=== PATIENT | female | born 1980 | race Caucasian/White ===

== ENCOUNTER 2018-03-23 20:01 | Emergency (ER) | payer OTHER ==
--- OUTSIDE RECORDS SUMMARY | 2018-03-23 20:04 | XMS REPORT | Clinical Summary ---
:1980 Author Organization [facility] Address [address] [place] [address] Care Team Providers Name Role Phone Deon Latham MD Primary Care Provider Allergies Active Allergy Reactions Severity Noted Date Comments Azithromycin Hives 07/25/2017 Levofloxacin Other (See Comments) 07/25/2017 Chest pains Medications Medication Sig Dispensed Refills Start End Date Status Date multivitamin Take 1 tablet 0 Active (THERAGRAN) tablet by mouth daily. TURMERIC ROOT EXTRACT Take by mouth. 0 Active ORAL UNABLE TO FIND PREVENTA 0 Active MIGRAINE magnesium oxide Take 400 mg by 0 09/28/19 Discontinued (MAG-OX) 400 mg tablet mouth daily. 18 amitriptyline (ELAVIL) Take 1 tablet 30 tablet 3 09/28/19 Discontinued 10 MG (10 mg total) 8 18 tabletIndications: by mouth Tension headache, nightly. Migraine without aura and without status migrainosus, not intractable methylPREDNISolone follow package 21 tablet 0 02/06/20 (MEDROL, NURIA,) 4 mg directions 8 18 tablet tiZANidine (ZANAFLEX) 2 Take 1 tablet 60 tablet 2 03/02/20 MG tablet (2 mg total) 8 18 by mouth 2 (two) times a day as needed for muscle spasms for up to 30 days. Active Problems Problem Noted Date Migraine without aura and without status migrainosus, not intractable 2017 Tension headache 09/27/2017 Encounters Date Type Specialty Care Team Description 01/31/2018 Office Visit Neurology Dutch Arnett MD Cervical radiculopathy ( Primary Dx); Migraine without aura and without status migrainosus, not intractable; Tension headache 09/27/2017 Office Visit Neurology Dutch Arnett MD Migraine without aura and without status migrainosus, not intractable (Primary Dx); Tension headache 09/04/2017 Orders Only Neurology Mel Hensley, Tension headache; MA Migraine without aura and without status migrainosus, not intractable 08/22/2017 Orders Only Neurology Mel Hensley, Migraine without aura and without status migrainosus, not intractable; MA Chiari I malformation 07/25/2017 Office Visit Neurology Dutch Arnett MD Tension headache ( Primary Dx); Migraine without aura and without status migrainosus, not intractable; Chiari I malformation after 03/22/2017 Family History Medical History Relation Name Comments Hypertension Father Stroke Maternal Grandfather Stroke Maternal Grandmother Alzheimer's disease Paternal Grandmother Relation Name Status Comments Father Maternal Grandfather Maternal Grandmother Paternal Grandmother Social History Tobacco Use Types Packs/Day Years Used Date Never Smoker Smokeless Tobacco: Never Used Alcohol Use Drinks/Week oz/Week Comments Yes ocassionally Sex Assigned at Date Recorded Not on file Job Start Date Occupation Industry Not on file Not on file Not on file Travel History Travel Start Travel End No recent travel history available. Last Filed Vital Signs Vital Sign Reading Time Taken Blood Pressure 116/68 01/31/2018 8:57 AM CDT Pulse 76 01/31/2018 8:57 AM CDT Temperature - - Respiratory Rate - - Oxygen Saturation - - Inhaled Oxygen Concentration - - Weight 71.2 kg (157 lb) 01/31/2018 8:57 AM CDT Height 168.9 cm (5' 6.5") 01/31/2018 8:57 AM CDT Body Mass Index 24.96 01/31/2018 8:57 AM CDT Plan of Treatment Date Type Specialty Care Team Description 05/01/2018 [place] [id number] [id number] Health Maintenance Due Date Last Done Comments MMR VACCINES (1 of 1 - Standard 1981 series) VARICELLA VACCINES (1 of 2 - 2-dose 1993 adolescent series) CERVICAL CANCER SCREENING 2001 INFLUENZA VACCINE 11/27/2017 HEPATITIS B VACCINES Aged Out No longer eligible based on patient's age to complete this topic IPV VACCINES Aged Out No longer eligible based on patient's age to complete this topic MENINGOCOCCAL VACCINE Aged Out No longer eligible based on patient's age to complete this topic Results Not on fileafter 03/22/2017 Insurance Payer Benefit Plan / Group Subscriber ID Type Phone Address AETNA AETNA HMO,POS,EPO, MC/EC xxxxxxxxxx HMO ) [place] [address] Advance Directives Patient has advance care planning documents on file. For more information, please contact:[id number] [place] [address]
[2018-03-23] MEDS ORDERED: KETOROLAC 30 MG/ML INJ ONE (21:19)
[2018-03-23] MEDS ORDERED: PROMETHAZINE 25 MG/ML VIAL ONE (21:19)
[2018-03-23] MEDS ORDERED: AMOX/K CLAV 875 MG TAB ONE (21:19)
[2018-03-23 21:20] LABS: Urine Blood 2+ (NEG); Urine Glucose NEGATIVE (NEG); Urine Protein NEGATIVE (NEG)
[2018-03-23] MEDS ORDERED: PROMETHAZINE 25 MG TABLET ONE (21:23)
[2018-03-23 21:46] LABS: Urine Bacteria <20 /HPF (<20); Urine Culture Reflex Order NOT NEEDED; Urine RBC <5 /HPF (NONE SEEN)
--- NOTE | 2018-03-23 21:55 | EDPHYS ---
Physician Documentation [facility] Name: Lizzy Bills Age: 38 yrs Sex: Female : 1980 Arrival Date: 03/23/2018 Time: 20:05 Bed 8 Private MD: Deon Latham ED Physician Luke Ghosh HPI: 03/23 21:07 This 38 yrs old Female presents to ER via Ambulatory with complaints of snw Headache. 21:07 The patient complains of pain to the forehead, right eye, left eye, right episcopal and snw right base of the skull. The patient describes the headache as pounding. Onset: The symptoms/episode began/occurred gradually, 10 day(s) ago. Associated signs and symptoms: Pertinent positives: nausea, Pertinent negatives: altered mental status, fever, malaise, neck stiffness, rash, vision changes, weakness. Severity of symptoms: At its worst the pain was moderate. Headache History: Other migraines since the 3rd grade. The symptoms are alleviated by sleep. The patient has experienced similar episodes in the past. The patient has not recently seen a physician. pt states pressure to jaw and face is new. Pt states she has had multiple CT scans, never noted to have aneurysms, no family hx. I do not want to repeat CT as benefit does not outweigh risks. 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 - Social history:: Smoking status: Patient/guardian denies using tobacco. - Ebola Screening: : No symptoms or risks identified at this time. ROS: 21:04 Constitutional: Negative for fever, chills, and weight loss, Eyes: Negative for injury, snw redness, and discharge, Positive pain behind bilateral eyes ENT: Negative for injury and discharge, tenderness to jaw bilaterally Neck: Negative for injury, pain, and swelling, Cardiovascular: Negative for chest pain, palpitations, and edema, Respiratory: Negative for shortness of breath, cough, wheezing, and pleuritic chest pain, Abdomen/GI: Negative for abdominal pain, nausea, vomiting, diarrhea, and constipation, Back: Negative for injury and pain, : Negative for injury, bleeding, discharge, and swelling, MS/Extremity: Negative for injury and deformity, Skin: Negative for injury, rash, and discoloration, Psych: Negative for depression, anxiety, suicide ideation, homicidal ideation, and hallucinations. 21:04 Neuro: Positive for headache. Exam: 21:03 Constitutional: This is a well developed, well nourished patient who is awake, alert, snw and in no acute distress. Eyes: Pupils equal round and reactive to light, extra-ocular motions intact. Lids and lashes normal. Conjunctiva and sclera are non-icteric and not injected. Cornea within normal limits. Periorbital areas with no swelling, redness, or edema. ENT: Nares patent. No nasal discharge, no septal abnormalities noted. Tympanic membranes are normal and external auditory canals are clear. Oropharynx with no redness, swelling, or masses, exudates, or evidence of obstruction, uvula midline. Mucous membranes moist. Neck: Trachea midline, no thyromegaly or masses palpated, and no cervical lymphadenopathy. Supple, full range of motion without nuchal rigidity, or vertebral point tenderness. No Meningismus. Chest/axilla: Normal chest wall appearance and motion. Nontender with no deformity. No lesions are appreciated. Cardiovascular: Regular rate and rhythm with a normal S1 and S2. No gallops, murmurs, or rubs. Normal PMI, no JVD. No pulse deficits. Respiratory: Lungs have equal breath sounds bilaterally, clear to auscultation and percussion. No rales, rhonchi or wheezes noted. No increased work of breathing, no retractions or nasal flaring. Abdomen/GI: Soft, non-tender, with normal bowel sounds. No distension or tympany. No guarding or rebound. No evidence of tenderness throughout. Back: No spinal tenderness. No costovertebral tenderness. Full range of motion. Skin: Warm, dry with normal turgor. Normal color with no rashes, no lesions, and no evidence of cellulitis. MS/ Extremity: Pulses equal, no cyanosis. Neurovascular intact. Full, normal range of motion. Psych: Awake, alert, with orientation to person, place and time. Behavior, mood, and affect are within normal limits. 21:03 Neuro: Orientation: is normal, Mentation: is normal, Memory: is normal, Cranial nerves: grossly normal, Motor: is normal, Sensation: is normal, seizure activity, is not displayed by the patient, Abnormal movements: there are no abnormal movements. Vital Signs: 20:51 BP 122 / 69; Pulse 77; Resp 18; Temp 98(O); Pulse Ox 100% on R/A; Weight 70.76 kg; tl2 Height 5 ft. 6 in. (167.64 cm); Pain 5/10; 21:49 BP 123 / 81; Pulse 61; Resp 17; Pulse Ox 99% on R/A; Pain 4/10; rr5 20:51 Body Mass Index 25.18 (70.76 kg, 167.64 cm) tl2 Clay Coma Score: 21:56 Eye Response: spontaneous(4). Verbal Response: oriented(5). Motor Response: obeys snw commands(6). Total: 15. MDM: 20:52 Patient medically screened. snw 21:56 Data reviewed: vital signs, nurses notes. Data interpreted: Pulse oximetry: on room air snw is 99 %. Interpretation: normal. Counseling: I had a detailed discussion with the patient and/or guardian regarding: the historical points, exam findings, and any diagnostic results supporting the discharge/admit diagnosis, the need for outpatient follow up, to return to the emergency department if symptoms worsen or persist or if there are any questions or concerns that arise at home. Special discussion: Based on the history and exam findings, there is no indication for further emergent testing or inpatient evaluation. I discussed with the patient/guardian the need to see the neurologist for further evaluation of the symptoms. I discussed with the patient/guardian the need to see the primary care provider for further evaluation of the symptoms. 03/23 20:11 Order name: Urine Microscopic Only; Complete Time: 21:53 snw 03/23 21:14 Order name: Urine Dipstick--Ancillary (enter results); Complete Time: 21:22 mt 03/23 21:14 Order name: Urine --Ancillary (enter results); Complete Time: 21:22 mt 03/23 20:11 Order name: Urine Dipstick-Ancillary (obtain specimen); Complete Time: 20:48 snw Administered Medications: 21:27 Drug: TORadol 60 mg Route: IM; Site: right gluteus; tl2 22:05 Follow up: Response: No adverse reaction rr5 21:27 Drug: Phenergan 25 mg Route: PO; tl2 22:06 Follow up: Response: No adverse reaction rr5 21:27 Drug: Augmentin 875 mg Route: PO; tl2 22:06 Follow up: Response: No adverse reaction rr5 Disposition: 03/24 00:38 Co-signature as Attending Physician, Luke Ghosh MD. trevor Disposition: 03/23/18 21:55 Discharged to Home. Impression: Headache, Acute sinusitis. - Condition is Stable. - Discharge Instructions: General Headache Without Cause, Migraine Headache, Sinusitis, Adult, Rehydration, Adult. - Prescriptions for Augmentin 875- 125 mg Oral Tablet - take 1 tablet by ORAL route every 12 hours for 10 days; 20 tablet. Zyrtec 10 mg Oral Tablet - take 1 tablet by ORAL route once daily As needed; 20 tablet. orphenadrine citrate 100 mg Oral Tablet Sustained Release - take 1 tablet by ORAL route 2 times per day As needed; 20 tablet. - Work release form, Medication Reconciliation Form, Thank You Letter, Antibiotic Education, Prescription Opioid Use form. - Follow up: Deon Latham MD; When: 2 - 3 days; Reason: Recheck today's complaints, Continuance of care, Re-evaluation by your physician. Follow up: Emergency Department; When: As needed; Reason: Worsening of condition. Signatures: Dispatcher [employer] EDMS Luke Ghosh MD MD pkl Montse Sinclair, [employer] SMOKEHOUSE OPERATOR-Rebecca Soria RN RN tl2 Maged Tucker RN RN rr5 Corrections: (The following items were deleted from the chart) 03/23 22:08 21:55 03/23/2018 21:55 Discharged to Home. Impression: Headache; Acute sinusitis. rr5 Condition is Stable. Forms are Medication Reconciliation Form, Thank You Letter, Antibiotic Education, Prescription Opioid Use. Follow up: Deon Latham; When: 2 - 3 days; Reason: Recheck today's complaints, Continuance of care, Re-evaluation by your physician. Follow up: Emergency Department; When: As needed; Reason: Worsening of condition. snw
--- NOTE | 2018-03-23 21:55 | ER ---
Nurse's Notes [facility] Name: Lizzy Bills Age: 38 yrs Sex: Female : 1980 Arrival Date: 03/23/2018 Time: 20:05 Bed 8 Private MD: Deon Latham Diagnosis: Headache;Acute sinusitis Presentation: 03/23 20:48 Presenting complaint: Patient states: Headache since 03/12, started at the base of tl2 skull and is now behind her eyes. Pt reports history of migraines but this feels different and is lasting longer. Reports nausea. Transition of care: patient was not received from another setting of care. Onset of symptoms was March 12, 2018. Risk Assessment: Do you want to hurt yourself or someone else? Patient reports no desire to harm self or others. Initial Sepsis Screen: Does the patient meet any 2 criteria? No. Patient's initial sepsis screen is negative. Does the patient have a suspected source of infection? No. Patient's initial sepsis screen is negative. Care prior to arrival: None. 20:48 Method Of Arrival: Ambulatory tl2 20:48 Acuity: [place] 3 tl2 Triage Assessment: 20:51 Headache History: The patient has had previous headaches and this one is different than tl2 previous episodes. General: Appears in no apparent distress. uncomfortable, Behavior is calm, cooperative, appropriate for age. Pain: Complains of pain in forehead and right base of the skull Pain radiates to jaw Pain currently is 5 out of 10 on a pain scale. at worst was 10 out of 10 on a pain scale. Pain began 2 weeks ago Also complains of nausea. Neuro: Level of Consciousness is awake, alert, obeys commands, Oriented to person, place, time, situation. Respiratory: Airway is patent Respiratory effort is even, unlabored, Respiratory pattern is regular, symmetrical. GI: Reports nausea. Derm: Skin is pink, warm \T\ dry. 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 - Social history:: Smoking status: Patient/guardian denies using tobacco. - Ebola Screening: : No symptoms or risks identified at this time. Screenin:53 Abuse screen: Denies threats or abuse. Nutritional screening: No deficits noted. tl2 Tuberculosis screening: No symptoms or risk factors identified. Fall Risk None identified. Assessment: 21:20 General: Appears in no apparent distress. distressed, Behavior is calm, cooperative, rr5 appropriate for age. Pain: Complains of pain in both eyes , face, forehead Pain currently is 5 out of 10 on a pain scale. Quality of pain is described as aching, Pain began gradually, Is intermittent. Neuro: Level of Consciousness is awake, alert, obeys commands, Oriented to person, place, time, situation, Reports headache in right in left. Cardiovascular: Capillary refill < 3 seconds Patient's skin is warm and dry. Respiratory: Airway is patent Respiratory effort is even, unlabored, Respiratory pattern is regular, symmetrical. GI: No signs and/or symptoms were reported involving the gastrointestinal system. : No signs and/or symptoms were reported regarding the genitourinary system. EENT: No signs and/or symptoms were reported regarding the EENT system. Derm: No signs and/or symptoms reported regarding the dermatologic system. Musculoskeletal: Capillary refill < 3 seconds, Range of motion: intact in all extremities. 21:52 Reassessment: Patient appears in no apparent distress at this time. Patient states rr5 feeling better. Patient states symptoms have improved. 22:06 Reassessment: explained the discharged instruction. no complaints made.vitally stable. rr5 Vital Signs: 20:51 BP 122 / 69; Pulse 77; Resp 18; Temp 98(O); Pulse Ox 100% on R/A; Weight 70.76 kg; tl2 Height 5 ft. 6 in. (167.64 cm); Pain 5/10; 21:49 BP 123 / 81; Pulse 61; Resp 17; Pulse Ox 99% on R/A; Pain 4/10; rr5 20:51 Body Mass Index 25.18 (70.76 kg, 167.64 cm) tl2 Sean Coma Score: 21:56 Eye Response: spontaneous(4). Verbal Response: oriented(5). Motor Response: obeys snw commands(6). Total: 15. ED Course: 20:05 Patient arrived in ED. ds1 20:05 Deon Latham MD is Private Physician. ds1 20:37 Montse Sinclair F[facility]-C [facility] snw 20:37 Luke Ghosh MD is Attending Physician. snw 20:50 Triage completed. tl2 20:51 Arm band placed on right wrist. tl2 20:52 Maged Tucker, RN is Primary Nurse. rr5 20:53 Patient has correct armband on for positive identification. Bed in low position. Call tl2 light in reach. Side rails up X 1. 21:53 Deon Latham MD is Referral Physician. snw 22:07 No provider procedures requiring assistance completed. Patient did not have IV access rr5 during this emergency room visit. Administered Medications: 21:27 Drug: TORadol 60 mg Route: IM; Site: right gluteus; tl2 22:05 Follow up: Response: No adverse reaction rr5 21:27 Drug: Phenergan 25 mg Route: PO; tl2 22:06 Follow up: Response: No adverse reaction rr5 21:27 Drug: Augmentin 875 mg Route: PO; tl2 22:06 Follow up: Response: No adverse reaction rr5 Outcome: 21:55 Discharge ordered by . snw 22:07 Discharged to home ambulatory. rr5 22:07 Condition: stable 22:07 Discharge instructions given to patient, Instructed on discharge instructions, follow up and referral plans. medication usage, Demonstrated understanding of instructions, follow-up care, medications, Prescriptions given X 3. 22:08 Patient left the ED. rr5 Signatures: Montse Sinclair FNP-C DIRECTOR TITLE-[facility] Karina Botello ds1 Rebecca Rodriguez RN RN tl2 Maged Tucker, ELIANE RN rr5
[2018-03-23 23:23] VITALS: TEMP 98
[2018-03-23 23:24] VITALS: BP 123/81; O2SAT 99
== END 2018-03-23 22:08 | disposition home or self-care (01) ==
LOC: ER 20:01
DX: J01.90 Acute sinusitis, unspecified (principal); R51 Headache; K21.9 Gastro-esophageal reflux disease without esophagitis; Z79.899 Other long term (current) drug therapy
CPT/HCPCS: 81003; 81015; 81025; 96372; 99283; J2550

== ENCOUNTER 2019-11-07 13:09 | Emergency (ER) | payer OTHER ==
--- OUTSIDE RECORDS SUMMARY | 2019-11-07 13:11 | XMS REPORT | Clinical Summary ---
:1980 Author Organization [facility] Address [address] [place] [id number] Care Team Providers Name Role Phone Deon Latham MD Primary Care Provider Allergies Active Allergy Reactions Severity Noted Date Comments Azithromycin Hives 07/25/2017 Levofloxacin Other (See Comments) 07/25/2017 Chest p ains Medications Medication Sig Dispensed Refills Start Date End Date Status multivitamin Take 1 tablet by 0 Active (THERAGRAN) tablet mouth daily. TURMERIC ROOT EXTRACT Take by mouth. 0 Active ORAL UNABLE TO FIND PREVENTA 0 Activ e MIGRAINE diclofenac (CATAFLAM) Take 1 tab at 90 tablet 0 05/01/2018 Active 50 MG tablet the onset of a severe headache, may repeat x1 in 2hour. Max 2 tabs in a day SUMAtriptan (IMITREX) Take 1 tab at 9 tablet 3 05/01/2018 Active 25 MG tablet onset. May repeat in 2 hours and not to exceed. Max 200mg /24 hours amitriptyline Take 1 tablet 30 tablet 3 05/01/2018 05/01/2019 (ELAVIL) 10 MG tablet (10 mg total) by mouth nightly. Active Problems Problem Noted Date Migraine without aura and without status migrainosus, not intractable 09/27/2017 Tension headache 09/27/2017 Family History Medical History Relation Name Comments [...] travel history available. 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
--- OUTSIDE RECORDS SUMMARY | 2019-11-07 13:11 | XMS REPORT | Continuity of Care Document ---
:1980 Author Organization [facility] t Address [address] [place] [address] Care Team Providers Name Role Phone Boogie Latham MD Primary Care Physician DR MARCELLE HEADLEY Attending Clinician Unavailable DR MARCELLE HEADLEY Admitting Clinician Unavailable Problems Condition Condition Condition Status Onset Resolution Last Treating Co mments Source Name Details Category Date Date Treatment Clinician Date Migraine Migraine Disease Active [place] without without 09-27 [facility] aura and aura and 00:00: st without without 00 status status migrainosu migrainosu s, not s, not intractabl intractabl e e Tension Tension Disease Active [facility] headache headache 09-27 Method i 00:00: st 00 GERD GERD Diagnosis [facility] Chronic Problem [facility] rhinitis rhinitis for EN T Nasal Nasal Diagnosis Active [facility] airway airway for ENT obstructio obstructio n n Headache Headache Diagnosis Active [facility] Deviated Deviated Diagnosis Active [facility] nasal nasal for ENT septum septum Hypertroph Hypertroph Diagnosis Active Center y of nasal y of nasal fo r ENT turbinates turbinates Cough Cough Diagnosis [facility] Dysphagia Dysphagia Diagnosis Active [facility] Edema of Edema of Diagnosis Active [facility] larynx larynx for ENT Allergies, Adverse Reactions, Alerts Allergy Allergy Status Severity Reaction(s) Onset Inactive Treating Comm ents Source Name Type Date Date Clinician Azithrom Propensi Active Hives [place] ycin ty to 07-25 [facility] adverse 00:00: st reaction 00 s to drug Levoflox Propensi Active Other (See Chest [place] acin ty to Comments) 07-25 pains [facility] adverse 00:00: st reaction 00 s to drug Levaquin Adverse Active Info Not Cente r Reaction Available for E NT Azithrom Adverse Active Info Not Cente r ycin Reaction Available for E NT Family History Family Member Diagnosis Comments Start Date Stop Date Source Natural father Hypertension [facility] Maternal Stroke [facility] grandfather Gnosticism Maternal Stroke [facility] grandmother Gnosticism Paternal Alzheimer's disease [place] grandmother Gnosticism Social History Social Habit Start Date Stop Date Quantity Comments Source Sex Assigned At [facility] Gnosticism Alcohol intake 2018-05-01 2018-05-01 Current drinker of Rolando lambert 00:00:00 00:00:00 alcohol (finding) [facility] st Alcohol Comment 2017-07-25 2017-07-25 ocassionally [facility] 00:00:00 00:00:00 Gnosticism Smoking Status Start Date Stop Date Source Never smoker [facility] Methodkatie t Medications Ordered Filled Start Stop Current Ordering Indication Dosage Frequency Signature Comments Components Source Medication Medication Date Date Medication? Clinician (SIG) Name Name diclofenac Yes Take 1 tab [place] (CATAFLAM) 1-03 at the [facility] 50 MG 00:00: onset of a st tablet 00 severe headache, may repeat x1 in 2hour. Max 2 tabs in a day SUMAtriptan Yes Take 1 tab [facility] (IMITREX) 1-03 at onset. Metho di 25 MG 00:00: May repeat st tablet 00 in 2 hours and not to exceed. Max 200mg /24 hours amitriptyli 2020- No 10mg QD Take 1 Bentley migueln ne (ELAVIL) 1-03 05-01 tablet (10 M ethodi 10 MG 00:00: 23:59 mg total) st tablet 00 :00 by mouth nightly. UNABLE TO Yes PREVENTA [place] FIND 6-01 MIGRAINE [facility] 10:17: st 35 multivitami Yes 1{tbl} QD Take 1 [place] 3-29 tablet by [facility] (THERAGRAN) 08:17: mouth st tablet 46 daily. TURMERIC Yes Take by Rigoberto n ROOT 3-29 mouth. [facility] EXTRACT 08:17: st ORAL 46 Probiotic Probiotic Yes [facility] defined for E[facility] Multivitami Multivitami Yes [facility] n [facility]ella defined for ENT Other Other Yes [facility] defined for ENT Turmeric Turmeric Yes [facility] defined for ENT Topamax Topamax Yes [facility] defined for ENT Procedures This patient has no known procedures. Plan of Care Planned Activity Planned Date Details Comments Source Future Scheduled 2019-11-28 INFLUENZA VACCINE [place] [facility] Test 00:00:00 [code = INFLUENZA VACCINE] Future Scheduled 2001 Screening for [facility] Test 00:00:00 malignant neoplasm of cervix (procedure) [code = 726820390] Encounters Start End Encounter Admission Attending Care Care Encounter Source Date/Time Date/Time Type Type Clinicians Facility Department ID 2019-06-01 Inpatient [id number] [place] 08:00:00 [facility] 2018-05-30 2018-05-30 Outpatient [facility] [id number] Center 10:40:00 10:40:00 [facility] 2018-05-13 2018-05-13 Outpatient [facility] [id number] Center 14:58:00 14:58:00 [facility] 2018-04-18 2018-04-18 Outpatient [facility] [id number] Center 10:00:00 10:00:00 [facility] Results This patient has no known results.
--- NOTE | 2019-11-07 13:58 | RAD REPORT ---
EXAM DESCRIPTION: RAD - Wrist Left 3 View - 11/07/2019 1:44 pm CLINICAL HISTORY: Deformity;Pain COMPARISON: No comparisons FINDINGS: Transverse fracture of the distal radius is present with ventral dislocation and impaction along the ventral margin of the fracture. Angulation deformity is present. The distal radius fractur e fragment is comminuted. There is at least 1 additional fracture plane seen that extends to the beena cular surface. Ulna styloid appears to be intact. Carpal bones are normally positioned to the disloca berto distal radius fracture fragment. Soft tissue swelling without foreign body. IMPRESSION: Comminuted distal left radius fracture dislocation.
[2019-11-07] MEDS ORDERED: ONDANSETRON 4 MG/2 ML VIAL ONE (14:07)
[2019-11-07] MEDS ORDERED: FENTANYL CITR 100 MCG/2 ML ONE (14:07)
[2019-11-07] MEDS ORDERED: KETAMINE HCL 500 MG/5 ML VIAL ONE (14:58)
[2019-11-07] MEDS ORDERED: propofoL 200 MG/20 ML VIAL IV ONE (14:59)
[2019-11-07] MEDS ORDERED: NA CHLORIDE 0.9% 1,000 ML ONE (15:30)
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
--- NOTE | 2019-11-07 16:53 | RAD REPORT ---
EXAM DESCRIPTION: RAD - Wrist Left 2 View - 11/07/2019 4:00 pm CLINICAL HISTORY: post reduction COMPARISON: No comparisonsWrist Left 3 View dated 11/07/2019 FINDINGS: Fracture dislocation has been reduced to near anatomic alignment and position. The remains approximately 15 degrees ventral angulation. Ulna styloid is fractured. Cast material is in place limiting detail. Lucency is present in the scaphoid bone. Nondisplaced fracture is not excluded. The fracture is prese nt, this would not likely require separate treatment from that use on the radius.
[2019-11-07 17:51] VITALS: O2SAT 100
[2019-11-07 17:58] VITALS: BP 110/68; TEMP 98
== END 2019-11-07 17:38 | disposition home or self-care (01) ==
LOC: ER 13:09
PROC: 2W3DX1Z Immobilization of Left Lower Arm using Splint (ICD-10-PCS; principal; 2019-11-07)
DX: S52.542A Smith's fracture of left radius, initial encounter for closed fracture (principal); S62.015A Nondisplaced fracture of distal pole of navicular [scaphoid] bone of left wrist, initial encounter for closed fracture; W19.XXXA Unspecified fall, initial encounter; Y93.9 Activity, unspecified; Y92.89 Other specified places as the place of occurrence of the external cause; Z88.1 Allergy status to other antibiotic agents
CPT/HCPCS: 96361; 73110; 73100; 96375; 96374; 99284; 29125; J2704; J3010; J7030; J2405

== ENCOUNTER 2020-08-23 10:59 | Emergency (ER) | payer OTHER ==
--- OUTSIDE RECORDS SUMMARY | 2020-08-23 11:04 | XMS REPORT | Continuity of Care Document ---
:1980 Author Organization [facility] t Address [address] [place] [address] Care Team Providers Name Role Phone Boogie Latham MD Primary Care Physician DR MARCELLE HEADLEY Attending Clinician Unavailable Shell DAMIAN, P. Attending Clinician Angelique Burgos RN Attending Clinician Unavailable Jad DAMIAN Attending Clinician Harley Caban APRN Attending Clinician Doctor Unassigned, Name Attending Clinician Unavailable Fransico Quijano Attending Clinician DR MARCELLE HEADLEY Admitting Clinician Unavailable SHELL Admitting Clinician Unavailable Payers Payer Name Policy Type Policy Effective Date Expiration Date [facility] ce Number AETNAAETNA [id number] [facility] Catholic [id number] /04/2017-Present MO Problems Condition Condition Condition Status Onset Resolution Last Treating Co mments Source Name Details Category Date Date Treatment Clinician Date Deviated Deviated Disease Active 2019-04 [place] nasal nasal 2-04 [facility] septum septum 00:00: st 00 Hypertroph Hypertroph Disease Active 2019-04 [place] y of nasal y of nasal 2-04 Me thodi turbinates turbinates 00:00: st 00 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 2-04 Meth kyra sinusitis sinusitis 00:00: st 00 Chronic Chronic Disease Active 2019-04 [place] frontal frontal 2-04 Method[facility] sinusitis sinusitis 00:00: st 00 Chronic Chronic Disease Active 2019-04 [place] sphenoidal sphenoidal 2-04 Me thodi sinusitis sinusitis 00:00: st 00 Migraine Migraine Disease Active [place] without without 09-27 [facility] aura and aura and 00:00: st without without 00 status status migrainosu migrainosu s, not s, not intractabl intractabl e e Tension Tension Disease Active [place] headache headache 09-27 Method i 00:00: st [...] Date Stop Date Source Natural father Hypertension Jeannette Catholic Maternal Stroke Jeannette grandfather Catholic Maternal Stroke Jeannette grandmother Catholic Paternal Alzheimer's disease [place] grandmother Catholic Social History Social Habit Start Date Stop Date Quantity Comments Source Tobacco use and 2020-04-18 2020-04-18 Never used [place]annette exposure 00:00:00 00:00:00 Catholic Alcohol intake 2020-04-18 2020-04-18 Ex-drinker [place]annette 00:00:00 00:00:00 (finding) Catholic Alcohol Comment 2017-07-25 2017-07-25 ocassionally Jeannette 00:00:00 00:00:00 Catholic Sex [birth year] At [birth year] [place] 00:00:00 00:00:00 Catholic Smoking Status Start Date Stop Date Source Never smoker Pro Methodis t Medications Ordered Filled Start Stop Current Ordering Indication Dosage Frequency Signature Comments Components Source Medication Medication Date Date Medication? Clinician (SIG) Name Name multivitami 2019-04 Yes 1{tbl} QD Take 1 Rolando lambert n 2-06 tablet by Methodi (THERAGRAN) 03:03: mouth st tablet 20 daily. topiramate 2019-04 Yes 50mg QD Take 50 mg [place] (TOPAMAX) 2-06 by mouth Method i 25 MG 03:03: daily. st tablet 20 HYDROcodone 2019-04 2020- No acute pain 1{tbl} Q6H Take 1 Mast -acetaminop 2-04 12-11 tablet by Me jose martinez 00:00: 23:[address] (Vicodin) 00 :00 every 6 5-300 mg (six) per tablet hours as needed for moderate pain for up to 7 days .acute pain. Max Daily Amount: 4 tablets UNABLE TO 2019-04- No PREVENTA Bentley ston FIND 05-23 MIGRAINE Methodi 17:44: 00:00 st 31 :00 TURMERIC 2019-04- No Take by Lilliam on ROOT 05-23 mouth. [facility] EXTRACT 17:44: 00:00 st ORAL 27 :00 diclofenac Yes Take 1 tab [place] [...] not to exceed. Max 200mg /24 hours Probiotic Probiotic Yes [facility] defined for ENT Multivitami Multivitami Yes [facility] n Angella defined for ENT Other Other Yes [facility] Angella defined for ENT Turmeric Turmeric Yes [facility] Angella defined for ENT Topamax Topamax Yes [facility] Angella defined for ENT Vital Signs Vital Name Observation Time Observation Value Comments Source Systolic blood 2020-04-18 14:43:00 103 mm[Hg] [place] Catholic pressure Diastolic blood 2020-04-18 14:43:00 63 mm[Hg] [place] Catholic pressure Heart rate 2020-04-18 14:43:00 65 /min Pro [facility] Respiratory rate 2020-04-18 14:43:00 16 /min Kiki Franklin Oxygen saturation in 2020-04-18 14:43:00 99 /min Pro [facility] Arterial blood by Pulse oximetry Body temperature 2020-04-01 13:25:00 36.78 Kaitlyn Kiki Franklin Body height 2020-04-01 06:57:00 167.6 cm Pro Franklin Body weight 2020-04-01 06:57:00 72.576 kg Pro Franklin BMI 2020-04-01 06:57:00 25.82 kg/m2 Pro [facility] Procedures Procedure Date / Time Performed Performing Clinician [facility] e THYROID BIOPSY FNA 2020-04-18 15:51:27 Ciera Goff CYTOLOGY 2020-04-18 13:46:00 Ciera Goffodi (NON-GYNECOLOGICAL) REQUEST ND AN ELECTIVE 2020-04-01 07:56:47 Yu Keene ENDOTRACHEAL AIRWAY SEPTOPLASTY, NASAL 2020-04-01 07:30:00 Ciera Goff POC , URINE 2020-04-01 07:00:00 Jad Xochilt Pro [facility] COVID-19 QUALITATIVE PCR 2020-03-30 09:06:00 Ciera Goff HEMOGLOBIN A1C 2020-03-23 17:48:00 Lavonne Caban HCG QUALITATIVE, SERUM 2020-03-23 17:48:00 Lavonne Caban SCREEN HC COMPLETE BLD COUNT 2020-03-23 17:48:00 Lavonne Caban W/AUTO DIFF COMPREHENSIVE METABOLIC 2020-03-23 17:48:00 Lavonne Caban PANEL ESTIMATED GFR 2020-03-23 17:48:00 Lavonne Caban ethodist US THYROID 2020-02-25 16:24:39 Ciera Goff Nd thodist Plan of Care Planned Activity Planned Date Details Comments Source Future Scheduled 2023-04-18 Screening for [facility] thodist Test 00:00:00 malignant neoplasm of cervix (procedure) [code = 647782654] Future Scheduled 2020-11-27 INFLUENZA VACCINE Rigoberto n Catholic Test 00:00:00 [code = INFLUENZA VACCINE] Future Scheduled 1998 Hepatitis C Pro Met hodist Test 00:00:00 screening (procedure) [code = 211881067] Future Scheduled 1996 COVID-19 VACCINE (1) Bentley bernabe Catholic Test 00:00:00 [code = COVID-19 VACCINE (1)] Encounters Start End Encounter Admission Attending Care Care Encounter Source Date/Time Date/Time Type Type Clinicians Facility Department ID 2019-06-01 Inpatient C RUMA HEADLEY [facility] [id number] [place] 08:00:00 [facility] 2020-04-18 2020-04-18 Outpatient [facility] [id number] [place] 00:00:00 00:00:00 CIERA 267 Method i 2020-04-01 2020-04-01 Outpatient [facility] 255 [id number] [place] 00:00:00 00:00:00 CIERA 115 Method i 2020-03-30 2020-03-30 Outpatient [facility] [id number] [place] 00:00:00 00:00:00 CIERA 470 Method i 2020-03-23 2020-03-23 Outpatient [facility] [id number] [place] 00:00:00 00:00:00 CIERA 805 Method i 2020-03-14 2020-03-14 Orders Doctor CUADRA [id number] 00:00:00 00:00:00 Only UnassignedDANNIELLE [id number] [facility] [id number] 2020-02-25 2020-02-25 Outpatient [facility] [id number] [place] 00:00:00 00:00:00 CIERA 403 Method i 2020-01-12 2020-01-12 Orders Doctor KHALIF [id number] 00:00:00 00:00:00 Only Unassigned, DANNIELLE [id number] [facility] [id number] 2019-12-31 2019-12-31 [facility] [id number] 00:00:00 00:00:00 Secure Msg [facility] [id number] Surgical [id number] Specialti [id number] es [address] [place] 2019-12-28 2019-12-28 [facility] [id number] 15:15:59 23:59:00 Encounter [facility] [id number] Surgical [id number] Specialti [id number] es 809 [place] 2019-12-28 2019-12-28 [facility] [id number] 15:02:06 15:37:28 Visit [facility] [id number] Surgical [id number] Specialti [id number] es 198 [place] 2018-05-30 2018-05-30 Outpatient [facility] [id number] [place] 10:40:00 10:40:00 [facility] for EN T for ENT [facility] 2018-05-13 2018-05-13 Outpatient [facility] [id number] [place] 14:58:00 14:58:00 Center for [facility] for EN T for ENT [facility] 2018-04-18 2018-04-18 Outpatient [facility] [id number] Center 10:00:00 10:00:00 Center for [facility] for EN T for ENT [facility] Results Test Description Test Time Test Comments Results Result Comments Source Cytology (non-gynecological) request 2020-04-19 16:33:25 Test Item Value Reference Range Interpretation Comme nts Case number (test code = [id number]) [id number] Cytology (non-gynecological) report (test See link below for PDF La b Report code = 1178) Result status (test code = 2736539) This is Final Report for [id number] [facility] [id number] 17:08:06 Interface, Radiology Results 04/18/2020 5:11 PM CSTFormatting of this note might be di fferent from the original.PROCEDURE: US THYROID BIOPSY FNAHISTORY: E04.1 Nontoxic single thyroid nodule, E04.2 Nontoxic multinodular goiter, E04.02TECHNIQUE: Risks, benefits, and alternatives discussed. Written and verbal informed consent obtained from the patient.A site for needle entry was selected and the skin was prepped and draped in the usual sterile fashion. After local administration of 1% buffered lidocaine, serial 25-gauge fine-needle aspirations were obtained using ultrasound guidance. The specimens were reviewed with pathology and were deemed adequate. They have been instructed to follow-up with Dr. CIERA GOFF for the results of the biopsy.Estimated Blood Loss: None.Complications: None.FINDINGS:*No significant change since the most recent imaging: approximately 5 cm right mid/inferior mixed solid/cystic thyroid nodule. *Central and inferior solid portions of the lesion were sampled.*Post- procedure images show no evidence of complication.IMPRESSION:1.Successful ultrasound-guided biopsy of 5 cm mixed solid/cystic right inferior thyroid nodule.[id number] 07:56:47Yu Keene CRNA 04/01/2020 7:58 AMAirway Date/Time: 04/01/2020 7:43 AMPerformed by: Yu Keene CRNAAuthorized by: Xochilt Street MD Location: ORUrgency: ElectiveDifficult Airway: No Anesthesiologist: Xochilt Street MDResident/VEST BACKER/AA: Yu Keene CRNAPerformed by: resident/VEST BACKER/AAPreoxygenated with 100% O2: Yes Mask Ventilation: Easy maskFinal Airway Type: Endotracheal airwayFinal Endotracheal Airway: ETT and reinforced tubeCuffed: Yes Technique Used: Direct laryngoscopyDevices/Methods Used in Placement: Intubating styletInsertion Site: OralBlade Type: MillerLaryngoscope Blade/Videolaryngoscope Blade Size: 2ETT Size (mm): 6.0Cuff at minimumocclusion pressure: Yes Measured from: TeethETT to Teeth (cm): 19Placement Verified by: CO2 detection, direct visualization and equal breath sounds Laryngoscopic view: Grade I - full view of glottisRapid Sequence Induction (RSI): No Number of Attempts at Approach: 1 Atraumatic intubation. No change to eyes, lips, teeth or oral mucosa.[facility] , [id number] 07:00:00 Test Item Value Reference Range Interpretation Comments test urine, POC (test Negative code = [id number]) Internal QC (test code = 257) QC acceptable Pro Franklin
[2020-08-23 13:16] LABS: Absolute Lymphocytes (CBC) 1.4 K/uL (0.7-4.9); Basophils % 0.3 % (0-1.3); Hematocrit 38.6 % (36.0-45.0); Lymphocytes % 12.7 % (15.3-44.8); MPV 8.2 fL (7.6-11.3); RBC Red Blood Cell Count 4.29 M/uL (3.86-4.86)
[2020-08-23 13:18] LABS: Protime INR 1.14
--- NOTE | 2020-08-23 13:24 | RAD REPORT ---
EXAM DESCRIPTION: US - Abdomen Exam Limited - 08/23/2020 1:07 pm CLINICAL HISTORY: Abdominal pain. COMPARISON: 2019 FINDINGS: The gallbladder wall is not thickened. A gallstone is not seen. The biliary tree is normal caliber. IMPRESSION: Unremarkable gallbladder ultrasound.
[2020-08-23] MEDS ORDERED: NA CHLORIDE 0.9% 1,000 ML ONE (13:25)
[2020-08-23 13:31] LABS: ALT/SGPT 18 U/L (12-78); AST/SGOT 12 U/L (15-37); Albumin 4.2 g/dL (3.4-5.0); Alkaline Phosphatase 69 U/L (45-117); BUN Blood Urea Nitrogen 11 mg/dL (7-18); Bicarbonate 26 mmol/L (21-32); Bilirubin Direct 0.1 mg/dL (0-0.2); Bilirubin Total 0.5 mg/dL (0.2-1.0); Glucose Level 92 mg/dL (74-106); Magnesium 2.1 mg/dL (1.8-2.4); NT PRO-BNP 69 pg/mL (<125); Potassium 4.3 mmol/L (3.5-5.1); Protein, Total 7.6 g/dL (6.4-8.2); Sodium Level 140 mmol/L (136-145); Troponin (Emerg Dept Use Only) < 0.02 ng/mL (0.0-0.045)
--- NOTE | 2020-08-23 14:06 | RAD REPORT ---
EXAM DESCRIPTION: RAD - Chest Single View - 08/23/2020 1:56 pm CLINICAL HISTORY: syncope COMPARISON: Two view chest May 2016 TECHNIQUE: AP portable chest image was obtained 08/23/2020 1:56 pm . FINDINGS: Lungs are clear. Heart and vasculature are normal. No measurable pleural effusion and no p neumothorax. No acute bony abnormality seen. No acute aortic findings suspected. IMPRESSION: No acute cardiopulmonary process. No significant change from comparison study.
--- NOTE | 2020-08-23 14:10 | RAD REPORT ---
EXAM DESCRIPTION: CT - Chest For Pe Angio - 08/23/2020 2:01 pm CLINICAL HISTORY: syncope, elevated d-dimer COMPARISON: No comparisons TECHNIQUE: Dynamically enhanced 3 mm thick images of the chest were obtained during administration o f approximately 150mL Isovue 370 IV contrast. Coronal and oblique MIP reconstruction images were gene rated and reviewed. Exam utilizes a protocol to evaluate the pulmonary arterial tree. All CT scans are performed using dose optimization technique as appropriate and may include automated exposure control or mA/KV adjustment according to patient size. FINDINGS: Exam was performed in conjunction with the contrast abdomen and pelvis study. Pulmonary ar trevor contrast density is not optimal but is sufficient to exclude any significant disease. No pulmona ry emboli are identified. The aorta as imaged shows no acute or suspicious finding. No pericardial thickening or effusion. No infiltrate or mass in the lung parenchyma. No pleural effusion or pleural thickening. No mediastinal or hilar suspicious masses. No chest wall masses or abnormal axillary lymphadenopathy. IMPRESSION: No pulmonary emboli identified. No other significant or suspicious findings.
--- NOTE | 2020-08-23 14:12 | RAD REPORT ---
EXAM DESCRIPTION: CT - Head Brain Wo Cont - 08/23/2020 1:58 pm CLINICAL HISTORY: Syncope COMPARISON: 2016 TECHNIQUE: Computed axial tomography of the head was obtained. IV contrast was not requested. All CT scans are performed using dose optimization technique as appropriate and may include automated exposure control or mA/KV adjustment according to patient size. FINDINGS: An intracranial bleed is not seen . The ventricles are normal in caliber. No extra-axial fluid collection is noted. Mild cerebellar tonsillar ectopia. . Fluid within the sinuses/ mastoids is not seen. IMPRESSION: No acute intracranial abnormality is seen. If patient's symptoms persist MRI of the bra in would be recommended.
--- NOTE | 2020-08-23 14:19 | RAD REPORT ---
EXAM DESCRIPTION: CT - Abdomen Pelvis W Contrast - 08/23/2020 2:01 pm CLINICAL HISTORY: Abdominal pain COMPARISON: Due to technical issues prior CT could not be reviewed. TECHNIQUE: Computed axial tomography of the abdomen pelvis was obtained. 100 cc Isovue-300 was admin istered intravenously. Oral contrast was not requested which limits evaluation of bowel All CT scans are performed using dose optimization technique as appropriate and may include automated exposure control or mA/KV adjustment according to patient size. FINDINGS: The liver, spleen, pancreas, adrenal and kidneys appear unremarkable. There is no evidence of diverticulitis. 2.9 centimeter left ovarian cyst. 2.4 centimeter right ovarian cyst. Retroverted uterus. No significa nt free fluid. Normal appendix Diastases of the rectus abdominis muscle 4.5 centimeters. Laxity of anterior abdominal wall. A loop o f small bowel abuts the linea alba. There is a tiny defect within anterior abdominal wall this level in the periumbilical region. IMPRESSION: Bilateral ovarian cyst without significant free-fluid
--- NOTE | 2020-08-23 14:52 | ER ---
Nurse's Notes [facility] Name: Lizzy Bills Age: 40 yrs Sex: Female : 1980 Arrival Date: 08/23/2020 Time: 11:00 Bed 20 Private MD: Diagnosis: Syncope and collapse;Other abdominal pain Presentation: 08/23 12:19 Chief complaint: Patient states: developed epigastric pain then felt weak and became em white/pale, another teacher from school checked her glucose and was 114, pt reports feeling nausea afterward, also reports has been watching her gallbladder, pt currently reports right upper quad. pain. Coronavirus screen: Client denies travel out of the [place] in the last 14 days. Ebola Screen: Patient negative for fever greater than or equal to 101.5 degrees Fahrenheit, and additional compatible Ebola Virus Disease symptoms Patient denies exposure to infectious person. Patient denies travel to an Ebola-affected area in the 21 days before illness onset. No symptoms or risks identified at this time. Initial Sepsis Screen: Does the patient meet any 2 criteria? No. Patient's initial sepsis screen is negative. Does the patient have a suspected source of infection? No. Patient's initial sepsis screen is negative. Risk Assessment: Do you want to hurt yourself or someone else? Patient reports no desire to harm self or others. Onset of symptoms was August 23, 2020. 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 - Social history:: Smoking status: Patient denies any tobacco usage or history of. Smoking status: Patient denies any tobacco usage or history of. Patient/guardian denies using alcohol, street drugs. Screenin:36 Abuse screen: Denies threats or abuse. Denies injuries from another. Nutritional ld1 screening: No deficits noted. Tuberculosis screening: No symptoms or risk factors identified. Fall Risk None identified. Assessment: 12:34 General: Appears in no apparent distress. comfortable, Behavior is calm, cooperative, ld1 appropriate for age. Pain: Complains of pain in epigastric area Pain radiates to right upper quadrant Pain currently is 8 out of 10 on a pain scale. Quality of pain is described as burning, sharp, Pain began 4 hours ago. Is continuous. Neuro: Level of Consciousness is awake, alert, obeys commands, Oriented to person, place, time, situation, Appropriate for age. Cardiovascular: Capillary refill < 3 seconds Patient's skin is warm and dry. Respiratory: Airway is patent Respiratory effort is even, unlabored, Respiratory pattern is regular, symmetrical. GI: Abdomen is flat, non-distended, Bowel sounds present X 4 quads. Reports upper abdominal pain, diarrhea, epigastric pain, nausea. : No deficits noted. EENT: No deficits noted. Derm: No deficits noted. Musculoskeletal: No deficits noted. 12:34 Reassessment: ERP at bedside discussing POC. ld1 14:19 Reassessment: Patient and/or family updated on plan of care and expected duration. Pain ld1 level reassessed. Patient is alert, oriented x 3, equal unlabored respirations, skin warm/dry/pink. Patient laying in bed, no concerns at this time. Patient denies pain at this time. Vital Signs: 12:19 BP 121 / 89; Pulse 89; Resp 20; Temp 98.3(O); Pulse Ox 99% on R/A; Weight 74.84 kg; em Height 5 ft. 6 in. (167.64 cm); Pain 1/10; 12:36 BP 128 / 74; Pulse 64; Resp 18; Temp 98.1(O); Pulse Ox 100% on R/A; Weight 74.84 kg; ld1 Height 5 ft. 6 in. (167.64 cm); Pain 8/10; 14:19 BP 102 / 60; Pulse 61; Resp 18; Pulse Ox 100% on R/A; Pain 0/10; ld1 15:05 BP 103 / 65; Pulse 59; Resp 18; Pulse Ox 100% on R/A; ld1 12:36 Body Mass Index 26.63 (74.84 kg, 167.64 cm) ld1 ED Course: 11:00 Patient arrived in ED. as 12:13 Triage completed. em 12:23 Arm band placed on. em 12:24 Alise Chen, RN is Primary Nurse. ld1 12:25 Jey Trent PA is PHCP. [facility] 12:25 Jaciel Baig MD is Attending Physician. m 12:36 Patient has correct armband on for positive identification. Placed in gown. Bed in low ld1 position. Call light in reach. Side rails up X 1. Pulse ox on. NIBP on. Door closed. Noise minimized. Warm blanket given. 12:36 No provider procedures requiring assistance completed. ld1 12:58 Initial lab(s) drawn, by me, sent to lab. Inserted saline lock: 20 gauge in right jl7 antecubital area, using aseptic technique. Blood collected. 13:08 US Abdomen Limited In Process Unspecified. EDMS 13:22 Notified Nurse Practitioner and/or Physician Bulk Folder of a critical lab result(s), aa5 D-dimer 821. 13:56 XRAY Chest (1 view) In Process Unspecified. EDMS 13:58 CT Head Brain wo Cont In Process Unspecified. EDMS 14:01 CT Chest For PE Angio In Process Unspecified. EDMS 14:01 CT Abd/Pelvis - IV Contrast Only In Process Unspecified. EDMS 14:51 Vikram Brooks MD is Referral Physician. jmm 15:05 IV discontinued, bleeding controlled, No redness/swelling at site. ld1 Administered Medications: 13:15 Drug: NS 0.9% 1000 ml Route: IV; Rate: 1 bolus; Site: right antecubital; jl7 Outcome: 14:52 Discharge ordered by . [facility] 15:05 Discharged to home ambulatory. ld1 15:05 Condition: stable 15:05 Discharge instructions given to patient, family, Instructed on discharge instructions, follow up and referral plans. medication usage, Demonstrated understanding of instructions, follow-up care, medications. 15:21 Patient left the ED. ld1 Signatures: Dispatcher [employer] EDMS Jey Trent PA PA jmm Munoz, Edgar, ELIANE RN em Constanza Edmonds Audri RN RN aa5 Cornelio Sainz RN RN jl7 Alise Chen, RN RN ld1 Corrections: (The following items were deleted from the chart) 12: 12:10 Chief complaint: Patient states: feeling bad for a few days, cough congestion em body aches and an right sided ear ache, PCP prescribed medications yesterday but haven't been helping, pt was diagnosed with pre-leukemia and told to come to the ED, has not been tested for covid recently em : 12:10 Coronavirus screen: chills, congestion, fever, muscle pain, Client presents with em at least one sign or symptom that may indicate coronavirus-19. Standard/surgical mask placed on the client. Provider contacted for isolation considerations. em 12: 12:10 Ebola Screen: Patient negative for fever greater than or equal to 101.5 degrees em Fahrenheit, and additional compatible Ebola Virus Disease symptoms Patient denies exposure to infectious person. Patient denies travel to an Ebola-affected area in the 21 days before illness onset. No symptoms or risks identified at this time. em : 12:10 Initial Sepsis Screen: Does the patient meet any 2 criteria? HR > 90 bpm. No. em Patient's initial sepsis screen is negative. Does the patient have a suspected source of infection? Yes: Productive cough/pneumonia em 12: 12:10 Risk Assessment: Do you want to hurt yourself or someone else? Patient reports no em desire to harm self or others. em : 12:10 Onset of symptoms was August 23, 2020 em em : 12:10 Method Of Arrival: Ambulatory em em : 12:10 BP 137 / 77; Pulse 93bpm; Resp 20bpm; Pulse Ox 99% RA; Temp 100.8F Oral; 76.2 kg; em Height 5 ft. 10 in.; BMI: 24.1; Pain 0/10; em 12: 12:10 Acuity: COLUMBA 3 em em 12:49 12:19 Chief complaint: Patient states: developed epigastric pain then felt weak and em became white/pale, another teacher from school checked her glucose and was 114, pt reports feeling nausea afterward, also reports has been swathing her gallbladder, pt currently reports right upper quad. pain em
--- NOTE | 2020-08-23 14:52 | EDPHYS ---
Physician Documentation [facility] Name: Lizzy Bills Age: 40 yrs Sex: Female : 1980 Arrival Date: 08/23/2020 Time: 11:00 Bed 20 Private MD: ED Physician Jaciel Baig HPI: 08/23 12:33 This 40 yrs old Female presents to ER via Ambulatory with complaints of Near jmm Syncope. 12:33 The patient has experienced near-syncope. Onset: The symptoms/episode began/occurred jmm acutely, just prior to arrival. Associated injury: The patient did not suffer any apparent associated injury. Associated signs and symptoms: Pertinent positives: abdominal pain. The patient has not experienced similar symptoms in the past. 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 - Social history:: Smoking status: Patient denies any tobacco usage or history of. Smoking status: Patient denies any tobacco usage or history of. Patient/guardian denies using alcohol, street drugs. ROS: 12:33 Constitutional: Negative for fever, chills, and weight loss, Cardiovascular: Negative jmm for chest pain, palpitations, and edema, Respiratory: Negative for shortness of breath, cough, wheezing, and pleuritic chest pain. 12:33 Abdomen/GI: Positive for abdominal pain. 12:33 Neuro: Positive for near syncope. 12:33 All other systems are negative. Exam: 12:33 Constitutional: This is a well developed, well nourished patient who is awake, alert, jmm and in no acute distress. Head/Face: atraumatic. Eyes: EOMI, no conjunctival erythema appreciated ENT: Moist Mucus Membranes Neck: Trachea midline, Supple Chest/axilla: Normal chest wall appearance and motion. Cardiovascular: Regular rate and rhythm. No edema appreciated Respiratory: Normal respirations, no respiratory distress appreciated 12:33 Back: Normal ROM Skin: General appearance color normal MS/ Extremity: Moves all extremities, no obvious deformities appreciated, no edema noted to the lower extremities Neuro: Awake and alert, normal gait Psych: Behavior is normal, Mood is normal, Patient is cooperative and pleasant 12:33 Abdomen/GI: Inspection: abdomen appears normal, Bowel sounds: normal, Palpation: soft, mild abdominal tenderness, in the epigastric area. 12:33 Abdomen/GI: Inspection: abdomen appears normal, Bowel sounds: normal, Palpation: soft, mild abdominal tenderness, in the epigastric area. 13:20 ECG was reviewed by the Attending Physician. [facility] Vital Signs: 12:19 BP 121 / 89; Pulse 89; Resp 20; Temp 98.3(O); Pulse Ox 99% on R/A; Weight 74.84 kg; em Height 5 ft. 6 in. (167.64 cm); Pain 1/10; 12:36 BP 128 / 74; Pulse 64; Resp 18; Temp 98.1(O); Pulse Ox 100% on R/A; Weight 74.84 kg; ld1 Height 5 ft. 6 in. (167.64 cm); Pain 8/10; 14:19 BP 102 / 60; Pulse 61; Resp 18; Pulse Ox 100% on R/A; Pain 0/10; ld1 15:05 BP 103 / 65; Pulse 59; Resp 18; Pulse Ox 100% on R/A; ld1 12:36 Body Mass Index 26.63 (74.84 kg, 167.64 cm) ld1 MDM: 12:33 Patient medically screened. [facility] 14:48 Data reviewed: vital signs, nurses notes. Counseling: I had a detailed discussion with [facility] the patient and/or guardian regarding: the historical points, exam findings, and any diagnostic results supporting the discharge/admit diagnosis, lab results, radiology results, the need for outpatient follow up, to return to the emergency department if symptoms worsen or persist or if there are any questions or concerns that arise at home. ED course: [place] syncope negative. Patient is advised to follow up with cardiology for further evaluation. Patient is otherwise given strict return precautions. Patient understood and agrees with the plan of care. . 08/23 12:40 Order name: Basic Metabolic Panel [facility] 08/23 12:40 Order name: CBC with Diff [facility] 08/23 12:40 Order name: LFT's; Complete Time: 14:19 [facility] 08/23 12:40 Order name: Magnesium; Complete Time: 14:19 [facility] 08/23 12:40 Order name: NT PRO-BNP; Complete Time: 14:19 [facility] 08/23 12:40 Order name: PT-INR; Complete Time: 13:28 [facility] 08/23 12:40 Order name: Troponin (emerg Dept Use Only); Complete Time: 14:19 [facility] 08/23 12:40 Order name: XRAY Chest (1 view); Complete Time: 14:19 [facility] 08/23 12:40 Order name: D-Dimer; Complete Time: 13:28 [facility] 08/23 12:41 Order name: Basic Metabolic Panel; Complete Time: 14:19 [facility] 08/23 12:41 Order name: CBC with Automated Diff; Complete Time: 13:28 [facility] 08/23 12:43 Order name: US Abdomen Limited; Complete Time: 13:28 [facility] 08/23 13:30 Order name: CT Head Brain wo Cont; Complete Time: 14:19 [facility] 08/23 13:30 Order name: CT Chest For PE Angio; Complete Time: 14:52 [facility] 08/23 12:40 Order name: EKG; Complete Time: 12:42 [facility] 08/23 12:40 Order name: Cardiac monitoring; Complete Time: 13:20 [facility] 08/23 12:40 Order name: EKG - Nurse/Tech; Complete Time: 13:20 [facility] 08/23 12:40 Order name: IV Saline Lock; Complete Time: 12:58 [facility] 08/23 12:40 Order name: Labs collected and sent; Complete Time: 12:58 [facility] 08/23 12:40 Order name: O2 Per Protocol; Complete Time: 12:58 [facility] 08/23 12:40 Order name: O2 Sat Monitoring; Complete Time: 12:58 [facility] 08/23 13:30 Order name: CT Abd/Pelvis - IV Contrast Only; Complete Time: 14:25 jm EC:20 Rate is 63 beats/min. Rhythm is regular. QRS [place] is Normal. [place] interval is normal. QRS jmm interval is normal. QT interval is normal. No Q waves. T waves are Normal. No ST changes noted. Reviewed by me. Administered Medications: 13:15 Drug: NS 0.9% 1000 ml Route: IV; Rate: 1 bolus; Site: right antecubital; jl7 Disposition: 08/23/20 14:52 Discharged to Home. Impression: Syncope and collapse, Other abdominal pain. - Condition is Stable. - Discharge Instructions: Abdominal Pain, Adult, Syncope. - Prescriptions for Pepcid 20 mg Oral Tablet - take 1 tablet by ORAL route every 12 hours for 10 days; 20 tablet. - Medication Reconciliation Form, Thank You Letter, Antibiotic Education, Prescription Opioid Use, Work release form form. - Follow up: Vikram Brooks MD; When: 2 - 3 days; Reason: Recheck today's complaints, Continuance of care, Re-evaluation by your physician. Addendum: 08/25/2020 06:33 Co-signature as Attending Physician, Jaciel Baig MD I agree with the assessment and t w4 plan of care. Signatures: Dispatcher [employer] EDJey Jones PA PA jmm Munoz, Edgar, RN RN Cornelio Sainz RN RN jl7 Jaciel Baig MD MD tw4 Alise Chen RN RN ld1 Corrections: (The following items were deleted from the chart) 08/23 15:21 14:52 08/23/2020 14:52 Discharged to Home. Impression: Syncope and collapse; Other ld1 abdominal pain. Condition is Stable. Forms are Medication Reconciliation Form, Thank You Letter, Antibiotic Education, Prescription Opioid Use. Follow up: Vikram Brooks; When: 2 - 3 days; Reason: Recheck today's complaints, Continuance of care, Re-evaluation by your physician. oc
[2020-08-23 15:31] VITALS: TEMP 98.1; O2SAT 100
[2020-08-23 15:33] VITALS: BP 103/65
--- NOTE | 2020-08-24 07:37 | EKG ---
Test Date: 2020-08-23 Test Time: 13:12:28 Information Analyst: TOO MEASUREMENT RESULTS: Intervals: Rate: 63 [place]: 140 QRSD: 78 QT: 392 QTc: 401 [place]: P: 80 [place]: 140 QRS: 65 T: 63 INTERPRETIVE STATEMENTS: Normal sinus rhythm Normal ECG No previous ECG available for comparison Electronically Signed On 08-24-20 07:35:16 CDT by Benson Fernandez
== END 2020-08-23 15:21 | disposition home or self-care (01) ==
LOC: ER 10:59
DX: R55 Syncope and collapse (principal); R10.9 Unspecified abdominal pain; K21.9 Gastro-esophageal reflux disease without esophagitis
CPT/HCPCS: 85025; 80048; 36415; 83735; 85610; 85379; 80076; 84484; 83880; 70450; 71275; 74177; 71045; 76705; Q9967; J7030; 93005; 99284

== ENCOUNTER 2020-11-22 06:32 | Day surgery (SDC) | payer OTHER ==
[2020-11-16 13:39] LABS: Urine Appearance CLEAR (Clear); Urine Bilirubin NEGATIVE (Negative); Urine Blood NEGATIVE (Negative); Urine Color YELLOW (Yellow); Urine Glucose NEGATIVE (Negative); Urine Protein NEGATIVE (Negative); Urine Specific Gravity 1.015 (1.005-1.030); Urine Urobilinogen 0.2 mg/dL (0.2-1.0); Urine pH 5.5 (5.0-7.0)
[2020-11-16 13:42] LABS: Urine Microscopic Reflex NO UMIC
[2020-11-16 13:48] LABS: Absolute Lymphocytes (CBC) 1.9 K/uL (0.7-4.9); Basophils % 0.7 % (0-1.3); Hematocrit 37.4 % (36.0-45.0); Lymphocytes % 29.4 % (15.3-44.8); MPV 7.9 fL (7.6-11.3); RBC Red Blood Cell Count 4.14 M/uL (3.86-4.86)
[2020-11-22 06:54] LABS: Specific Gravity 1.015 (1.005-1.030)
[2020-11-22] MEDS ORDERED: Ringers Lactate 1,000 ML IV ONE ×3 (07:12→13:29)
[2020-11-22] MEDS ORDERED: SCOPOLAMINE HYDROBROMIDE PATCH TD ONE (07:12)
[2020-11-22] MEDS ORDERED: propofoL 200 MG/20 ML VIAL IV ONE (07:33)
[2020-11-22] MEDS ORDERED: LIDOCAINE 2% MPF 5 ML VIAL ONE (07:33)
[2020-11-22] MEDS ORDERED: KETAMINE HCL 500 MG/5 ML VIAL ONE (07:33)
[2020-11-22] MEDS ORDERED: ROCURONIUM 50 MG/5 ML VIAL IV ONE (07:33)
[2020-11-22] MEDS ORDERED: dexAMETHasone 10 MG/ML VIAL ONE (07:33)
[2020-11-22] MEDS ORDERED: FENTANYL CITR 250 MCG/5 ML ONE (07:33)
[2020-11-22] MEDS ORDERED: MIDAZOLAM HCL 2 MG/2 ML INJ ONE (07:34)
[2020-11-22] MEDS ORDERED: ONDANSETRON 4 MG/2 ML VIAL ONE (07:34)
[2020-11-22] MEDS ORDERED: NS 0.9% VIAL 10 ML ONE (07:34)
[2020-11-22] MEDS ORDERED: BUPIVACAINE 0.25% PF 30 ML VIAL ONE (07:42)
[2020-11-22] MEDS: CEFAZOLIN/SWI 2gm 2 GM/20 ML SYR ONE ×2 (07:57→08:05)
[2020-11-22] MEDS ORDERED: GLYCOPYRROLATE 0.2 MG/ML SYR ONE (09:08)
[2020-11-22] MEDS ORDERED: KETOROLAC 30 MG/ML INJ ONE (10:41)
[2020-11-22 11:27] VITALS: O2SAT 100
[2020-11-22] MEDS ORDERED: Mastisol Adhesive Liq ONE (11:27)
[2020-11-22] MEDS: MEPERIDINE HCL 25 MG/ML SYR ONE ×4 (11:44→12:25)
[2020-11-22] MEDS: HYDROMORPHONE HCL 1 MG/ML INJ ONE ×2 (11:51→12:04)
[2020-11-22] MEDS ORDERED: HYDROCODONE/APAP 5/325 MG TAB ONE (14:00)
[2020-11-22 15:25] VITALS: TEMP 97.1
[2020-11-22 16:15] VITALS: BP 109/58
== END 2020-11-22 16:00 | disposition home or self-care (01) ==
LOC: OR 06:32
PROVIDERS: ATTEND Obstetrics & Gynecology
PROC: 0UT74ZZ Resection of Bilateral Fallopian Tubes, Percutaneous Endoscopic Approach (ICD-10-PCS; 2020-11-22)
PROC: 0UN24ZZ Release Bilateral Ovaries, Percutaneous Endoscopic Approach (ICD-10-PCS; 2020-11-22)
PROC: 0UB44ZZ Excision of Uterine Supporting Structure, Percutaneous Endoscopic Approach (ICD-10-PCS; 2020-11-22)
PROC: 0UB74ZZ Excision of Bilateral Fallopian Tubes, Percutaneous Endoscopic Approach (ICD-10-PCS; 2020-11-22)
PROC: 0UQ24ZZ Repair Bilateral Ovaries, Percutaneous Endoscopic Approach (ICD-10-PCS; 2020-11-22)
PROC: 0UT94ZZ Resection of Uterus, Percutaneous Endoscopic Approach (ICD-10-PCS; principal; 2020-11-22 07:30)
DX: N92.6 Irregular menstruation, unspecified (principal); R10.11 Right upper quadrant pain; N80.3 Endometriosis of pelvic peritoneum; N83.291 Other ovarian cyst, right side; Z20.822 Contact with and (suspected) exposure to COVID-19
CPT/HCPCS: 85025; 36415; 86900; 86850; 81025; 86901; 88307; 81003; 58571; 58660; 58662; 58999; U0002; J2704; J2250; J3010; J1100; J2175 ×2; J1170; J0690; J7120 ×3; J2405